=== PATIENT | female | born 1995 | race Caucasian/White ===

== ENCOUNTER 2018-01-25 20:34 | Emergency (ER) | payer BC ==
[2018-01-25] MEDS ORDERED: ACETAMINOPHEN 325 MG TABLET (FP) PO ONE (21:05)
[2018-01-25] MEDS ORDERED: ACETAMINOPHEN 325 MG TABLET (FP) ONE (21:07)
--- NOTE | 2018-01-25 21:09 | PDOC ---
History of Present Illness - History of Present Illness Initial Comments: 01/25/18 21:09 The patient is a 23 year old female, with no significant past medical history, who presents to the emergency department with a sudden onset of headache, blurred vision, and left hand heaviness and tingling at 7:45PM this evening. She reports noticing the blurred vision around the edges. She states the visual changes have improved since the onset at 7:45PM, however, still is experiencing blurry vision. She states the headache has subsided at this time. She denies numbness or tingling to her left hand, but states it feels heavy. She states she started taking REYNA control about 6 days ago and is concerned her symptoms may be a side effect of the control. She reports eating throughout her day and states she is just coming from dinner. She denies chest pain, shortness of breath, and dizziness. She denies fever, chills, nausea, vomit, diarrhea and constipation. She denies dysuria, frequency , urgency and hematuria. Allergies: NKDA <Vero Wilkerson - Last Filed: 01/25/18 21:09> - General History Source: Patient Exam Limitations: No Limitations <Kenyetta Mcgee - Last Filed: 01/25/18 23:09> - General Chief Complaint: Lightheaded Stated Complaint: DIZZY, BLURRY VISION Past History <Vero Wilkerson - Last Filed: 01/25/18 21:09> - Past Medical History COPD: No - Suicide/Smoking/Psychosocial Hx Smoking History: Never smoked Hx Alcohol Use: (occasional) <Kenyetta Mcgee - Last Filed: 01/25/18 23:09> - Past Medical History Allergies/Adverse Reactions: Allergies Allergy/AdvReac Type Severity Reaction Status Date / Time No Known Allergies Allergy Verified 01/25/18 20:35 Home Medications: Ambulatory Orders Cephalexin [Keflex] 500 mg PO TID #15 capsule MDD 3 01/25/18 Reyna Control Pills 1 tab PO ASDIR 01/25/18 Review of Systems - Review of Systems Able to Perform ROS?: Yes Comments:: 01/25/18 21:10 GENERAL/CONSTITUTIONAL: No fever or chills. No weakness. HEAD, EYES, EARS, NOSE AND THROAT: (+) blurred vision. No ear pain or discharge. No sore throat. CARDIOVASCULAR: No chest pain or shortness of breath. RESPIRATORY: No cough, wheezing, or hemoptysis. GASTROINTESTINAL: No nausea, vomiting, diarrhea or constipation. GENITOURINARY: No dysuria, frequency, or change in urination. MUSCULOSKELETAL: No joint or muscle swelling or pain. No neck or back pain. SKIN: No rash NEUROLOGIC: (+) headache, left hand heaviness and tingling. No vertigo, loss of consciousness, or change in strength. ENDOCRINE: No increased thirst. No abnormal weight change. HEMATOLOGIC/LYMPHATIC: No anemia, easy bleeding, or history of blood clots. ALLERGIC/IMMUNOLOGIC: No hives or skin allergy. <Vero Wilkerson - Last Filed: 01/25/18 21:09> *Physical Exam - Vital Signs Last Vital Signs Temp Pulse Resp BP Pulse Ox 98.1 F 89 18 137/94 100 01/25/18 20:35 01/25/18 20:35 01/25/18 20:35 01/25/18 20:35 01/25/18 20:35 - Physical Exam Comments: 01/25/18 21:10 GENERAL: Awake, alert, and fully oriented, in no acute distress HEAD: No signs of trauma EYES: PERRLA, EOMI, sclera anicteric, conjunctiva clear, No papilledema. Visual lau are intact. ENT: Auricles normal inspection, hearing grossly normal, nares patent, oropharynx clear without exudates. Moist mucosa NECK: Normal ROM, supple, no lymphadenopathy, JVD, or masses LUNGS: Breath sounds equal, clear to auscultation bilaterally. No wheezes, and no crackles HEART: Regular rate and rhythm, normal S1 and S2, no murmurs, rubs or gallops ABDOMEN: Soft, nontender, normoactive bowel sounds. No guarding, no rebound. No masses EXTREMITIES: Normal range of motion, no edema. No clubbing or cyanosis. No cords, erythema, or tenderness. 5/5 MS. NEUROLOGICAL: Cranial nerves II through XII intact. Normal speech, normal gait. Sensation intact. MS 5/5 in all extremities. SKIN: Warm, Dry, normal turgor, no rashes or lesions noted. <Vero Wilkerson - Last Filed: 01/25/18 21:09> - Vital Signs Last Vital Signs Temp Pulse Resp BP Pulse Ox 98.1 F 89 18 137/94 100 01/25/18 20:35 01/25/18 20:35 01/25/18 20:35 01/25/18 20:35 01/25/18 20:35 <Kenyetta Mcgee - Last Filed: 01/25/18 23:09> ED Treatment Course - Medications Given in the ED: ED Medications Discontinued Medications Generic Name Dose Route Start Last Admin Trade Name Reagan PRN Reason Stop Dose Admin Acetaminophen 650 mg 01/25/18 21:05 01/25/18 21:09 Tylenol - PO 01/25/18 21:06 650 mg ONCE ONE Administration <Vero Wilkerson - Last Filed: 01/25/18 21:09> - LABORATORY CBC & Chemistry Diagram: 01/25/18 21:10 01/25/18 21:10 <Kenyetta Mcgee - Last Filed: 01/25/18 23:09> Medical Decision Making - Medical Decision Making 01/25/18 21:05 23 yo F with no pmhx here with c/o feeling blurry vision, headache and tingling in her arm. started this evening after having glass of wine. did start taking reyna one week ago was concerned related to medication. no weakness. no n/v no trauma. no other medications. on exam normal nuero exam. no papilledema on eye exam. differnetial se of wine, electrolyte abnormality, , dehydration. plna labs ct head. reassess. pt unlikley sxs due to central venous thrombosis as only on ocp x one week. sxs mild, no papilledema on exam. no change mental status. will recommend outpt mri however if sxs continue and dc of reyna. 01/25/18 23:[address] negative. pt improved. has uti, will treat with keflex. told to discontinue reyna. dc home. told to return for continued symtpoms. <Kenyetta Mcgee - Last Filed: 01/25/18 23:09> *DC/Admit/Observation/Transfer - Attestations Scribe Attestion: 01/25/18 21:10 Documentation prepared by Vero Wilkerson, acting as medical appointment clerk for Kenyetta Mcgee MD <Vero Wilkerson - Last Filed: 01/25/18 21:09> <Kenyetta Mcgee - Last Filed: 01/25/18 23:09> Diagnosis at time of Disposition: UTI (urinary tract infection), Headache - Discharge Dispostion Disposition: HOME Condition at time of disposition: Improved - Prescriptions Prescriptions: Cephalexin [Keflex] 500 mg PO TID #15 capsule MDD 3 - Patient Instructions Printed Discharge Instructions: Urinary Tract Infection, Migraine -- Adult Additional Instructions: you should discontinue taking your Reyna control if continue to have symtpoms. you should follow up with your inhalation therapy aide for another form of control. you will need to use another form of control in the mean time such as condoms. take ibuprofen 400 mg every 8 hour as needed for pain. take keflex 500 mg three times dailyx 5 days for your urinary tract infection. return for any problems or concerns.
[2018-01-25 21:12] LABS: URINE APPEARANCE Clear; URINE BILIRUBIN Negative (NEGATIVE); URINE BLOOD Trace-intact (NEGATIVE); URINE COLOR YELLOW; URINE GLUCOSE (UA) Negative (NEGATIVE); URINE KETONE Negative (NEGATIVE); URINE LEUK ESTERASE 3+ (NEGATIVE); URINE NITRITE Negative (NEGATIVE); URINE PROTEIN Negative (NEGATIVE); URINE UROBILINOGEN 0.2 (0.2-1.0)
[2018-01-25 21:16] LABS: HCG,QUALITATIVE URINE NEGATIVE
[2018-01-25 21:19] LABS: EPI CELLS FEW /HPF; URINE BACTERIA FEW /hpf (NEGATIVE); URINE RBC 0-2 /hpf (0-3); URINE WBC 20-30 (0-5)
[2018-01-25 21:20] LABS: BASO % 0.8 % (0-2.0); EOS % 1.1 % (0-4.5); HEMATOCRIT 37.2 % (32.4-45.2); HEMOGLOBIN 12.3 GM/dl (10.7-15.3); LYMPH % 41.4 % (8-40); MCHC 33.1 g/dl (32.0-36.0); MEAN CELL VOLUME 78.5 fl (80-96); MEAN PLT VOLUME 8.1 fl (7.5-11.1); MONO % 6.5 % (3.8-10.2); NEUT % 50.2 % (42.8-82.8); PLATELET COUNT 276 K/MM3 (134-434); RBC 4.74 M/mm3 (3.60-5.2); RDW 14.8 % (11.6-15.6); WHITE BLOOD COUNT 5.3 K/mm3 (4.0-10.8)
[2018-01-25 21:34] VITALS: BP 137/94; PULSE 89; TEMP 98.1; BMI 21.1
[2018-01-25 21:45] LABS: ALBUMIN 4.4 g/dl (3.5-5.0); ALK PHOS 40 U/L (32-92); ANION GAP 6 (8-16); BLOOD UREA NITROGEN 11 mg/dl (7-18); CALCIUM 9.3 mg/dl (8.4-10.2); CHLORIDE 105 mmol/L (98-107); CO2 25 mmol/L (22-28); GLUCOSE,RANDOM 111 mg/dl (74-106); POTASSIUM 3.6 mmol/L (3.5-5.1); SGOT/AST 26 U/L (10-42); SGPT/ALT 23 U/L (10-40); SODIUM 136 mmol/L (136-145); TOT PROT 7.5 g/dl (6.4-8.3)
[2018-01-25 21:55] LABS: BILIRUBIN,TOTAL < 0.5 mg/dl (0.2-1.0); CREATININE < 0.8 mg/dl (0.6-1.3)
[2018-01-25] MEDS ORDERED: CEPHALEXIN MONOHYDRATE 500 MG CAPSULE (UD) PO ONE (22:34)
[2018-01-25] MEDS ORDERED: CEPHALEXIN MONOHYDRATE 500 MG CAPSULE (UD) ONE (22:55)
== END 2018-01-25 23:20 | disposition home or self-care (01) ==
LOC: FER 20:34
DX: N39.0 Urinary tract infection, site not specified (principal); R51 Headache
CPT/HCPCS: 36415; 70450-TC; 80053; 81003; 81015; 84703; 85025; 87086; 87186; 99282-25